=== PATIENT | female | born 1980 | race Caucasian/White ===

== ENCOUNTER 2023-10-20 19:50 | Emergency (ER) | payer OTHER, SELFPAY ==
--- OUTSIDE RECORDS SUMMARY | 2023-10-20 19:55 | XMS REPORT | Continuity of Care Document ---
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 (Robaxin) 750 Mg TABLET 10-09 01:17: 00 No 750mg Every 4 Hours for Moderate Pain(4-6) [facility] Ibuprofen (Motrin) 600 Mg TAB 10-09 01:17: 00 No 600mg Qid Prn for Moderate Pain(4-6) [facility] Methocarbam ol (Robaxin) 750 Mg TABLET 10-09 01:17: 00 No 750mg Every 4 Hours for Moderate Pain(4-6) [facility] Ibuprofen (Motrin) 600 Mg TAB 10-09 01:17: 00 06-30 00:00 :00 No 600mg Qid Prn for Moderate Pain(4-6) [facility] Methocarbam ol (Robaxin) 750 Mg TABLET 10-09 01:17: 06-30 00:00 :00 No 750mg Every 4 Hours for Moderate Pain(4-6) [facility] Ibuprofen (Motrin) 600 Mg TAB 10-09 01:17: 06-30 00:00 :00 No 600mg Qid Prn for Moderate Pain(4-6) [facility] Methocarbam ol (Robaxin) 750 Mg TABLET 10-09:17: 06-30 00:00 :00 No 750mg Every 4 Hours for Moderate Pain(4-6) [facility] Ibuprofen (Motrin) 600 Mg TAB 10-09 01:17: 06-30 00:00 :00 No 600mg Qid Prn for Moderate Pain(4-6) [facility] Methocarbam ol (Robaxin) 750 Mg TABLET 10-09 01:17: 06-30 00:00 :00 No 750mg Every 4 Hours for Moderate Pain(4-6) [facility] Gabapentin (Neurontin) 100 Mg CAP 09-09 01:33: 00 02-22 00:00 :00 No 100mg Three Times A Day [facility] Gabapentin (Neurontin) 100 Mg CAP 09-09 01:33: 00 02-22 00:00 :00 No 100mg Three Times A Day [facility] Gabapentin (Neurontin) 100 Mg CAP 09-09 01:33: 00 02-22 00:00 :00 No 100mg Three Times A Day [facility] Gabapentin (Neurontin) 100 Mg CAP 09-09 01:33: 00 02-22 00:00 :00 No 100mg Three Times A Day [facility] Gabapentin (Neurontin) 100 Mg CAP 09-09 01:33: 00 02-22 00:00 :00 No 100mg Three Times A Day [facility] Gabapentin (Neurontin) 100 Mg CAP 09-09 01:33: 00 02-22 00:00 :00 No 100mg Three Times A Day [facility] Ondansetron Hcl (Zofran Odt) 4 Mg TAB.SHUDIS 2014- 2-18 13:44: 00 02-22 00:00 :00 No 4mg Every 8 Hours [facility] Ondansetron Hcl (Zofran Odt) 4 Mg TAB.RAPDIS 2014-06 13:44: 00 02-22 00:00 :00 No 4mg Every 8 Hours [facility] Ondansetron Hcl (Zofran Odt) 4 Mg TAB.RAPDIS 2014-06 13:44: 00 02-22 00:00 :00 No 4mg Every 8 Hours [facility] Ondansetron Hcl (Zofran Odt) 4 Mg TAB.RAPDIS 2014-06 13:44: 00 02-22 00:00 :00 No 4mg Every 8 Hours [facility] Ondansetron Hcl (Zofran Odt) 4 Mg TAB.SHUDIS 2014-06 13:44: 00 02-22 00:00 :00 No 4mg Every 8 Hours [facility] Ondansetron Hcl (Zofran Odt) 4 Mg TAB.ANTONIO 2014-06 13:44: 00 02-22 00:00 :00 No 4mg Every 8 Hours [facility] Cephalexin (Keflex) 500 Mg CAP 01-22 17:39: 00 02-22 00:00 :00 No 1 Every 6 Hours [facility] Phenazopyri dine Hcl (Pyridium) 100 Mg TAB 01-22 17:39: 00 02-22 00:00 :00 No 100mg Three Times A Day [facility] Polyethylen e Glycol 3350 (Miralax) 17 Gm POWD.PACK 01-22 17:39: 00 02-22 00:00 :00 No 1 Twice A Day [facility] Cephalexin (Keflex) 500 Mg CAP 01-22 17:39: 00 02-22 00:00 :00 No 1 Every 6 Hours [facility] Phenazopyri dine Hcl (Pyridium) 100 Mg TAB 01-22 17:39: 00 02-22 00:00 :00 No 100mg Three Times A Day [facility] Polyethylen e Glycol 3350 (Miralax) 17 Gm POWD.PACK 01-22 17:39: 00 02-22 00:00 :00 No 1 Twice A Day [facility] Cephalexin (Keflex) 500 Mg CAP 01-22 17:39: 00 02-22 00:00 :00 No 1 Every 6 Hours [facility] Phenazopyri dine Hcl (Pyridium) 100 Mg TAB 01-22 17:39: 00 02-22 00:00 :00 No 100mg Three Times A Day [facility] Polyethylen e Glycol 3350 (Miralax) 17 Gm POWD.PACK 01-22 17:39: 00 02-22 00:00 :00 No 1 Twice A Day [facility] Cephalexin (Keflex) 500 Mg CAP 01-22 17:39: 00 02-22 00:00 :00 No 1 Every 6 Hours [facility] Phenazopyri dine Hcl (Pyridium) 100 Mg TAB 01-22 17:39: 00 02-22 00:00 :00 No 100mg Three Times A Day [facility] Polyethylen e Glycol 3350 (Miralax) 17 Gm POWD.PACK 01-22 17:39: 00 02-22 00:00 :00 No 1 Twice A Day [facility] Cephalexin (Keflex) 500 Mg CAP 01-22 17:39: 00 02-22 00:00 :00 No 1 Every 6 Hours [facility] Phenazopyri dine Hcl (Pyridium) 100 Mg TAB 01-22 17:39: 00 02-22 00:00 :00 No 100mg Three Times A Day [facility] Polyethylen e Glycol 3350 (Miralax) 17 Gm POWD.PACK 01-22 17:39: 00 02-22 00:00 :00 No 1 Twice A Day [facility] Cephalexin (Keflex) 500 Mg CAP 01-22 17:39: 00 02-22 00:00 :00 No 1 Every 6 Hours [facility] Phenazopyri dine Hcl (Pyridium) 100 Mg TAB 01-22 17:39: 00 02-22 00:00 :00 No 100mg Three Times A Day [facility] Polyethylen e Glycol 3350 (Miralax) 17 Gm POWD.PACK 01-22 17:39: 00 02-22 00:00 :00 No 1 Twice A Day [facility] Benzocaine/ Antipyrine (Auralgan Otic Soln) 150 Drop/10 Ml SOLN 01-12 15:59: 00 02-22 00:00 :00 No 2[drp] Three Times A Day as needed for Pain [facility] Benzocaine/ Antipyrine (Auralgan Otic Soln) 150 Drop/10 Ml SOLN 01-12 15:59: 00 02-22 00:00 :00 No 2[drp] Three Times A Day as needed for Pain [facility] Benzocaine/ Antipyrine (Auralgan Otic Soln) 150 Drop/10 Ml SOLN 01-12 15:59: 00 02-22 00:00 :00 No 2[drp] Three Times A Day as needed for Pain [facility] Benzocaine/ Antipyrine (Auralgan Otic Soln) 150 Drop/10 Ml SOLN 01-12 15:59: 00 02-22 00:00 :00 No 2[drp] Three Times A Day as needed for Pain [facility] Benzocaine/ Antipyrine (Auralgan Otic Soln) 150 Drop/10 Ml SOLN 01-12 15:59: 00 02-22 00:00 :00 No 2[drp] Three Times A Day as needed for Pain [facility] Benzocaine/ Antipyrine (Auralgan Otic Soln) 150 Drop/10 Ml SOLN 01-12 15:59: 00 02-22 00:00 :00 No 2[drp] Three Times A Day as needed for Pain [facility] D-Methorpha n Hb/P-Epd Hcl/Bpm Syrup (Bromfed Dm Cough Syrup) 118 Ml SYRUP 2013-06 18:59: 00 02-22 00:00 :00 No 10mL Bedtime [facility] D-[place]eth[place] n Hb/P-Epd Hcl/Bpm Syrup (Bromfed Dm Cough Syrup) 118 Ml SYRUP 2013-06 18:59: 00 02-22 00:00 :00 No 10mL Bedtime [facility] D-Methorpha n Hb/P-Epd Hcl/Bpm Syrup (Bromfed Dm Cough Syrup) 118 Ml SYRUP 2013-06 18:59: 00 02-22 00:00 :00 No 10mL Bedtime [facility] D-Methor[place] n Hb/P-Epd Hcl/Bpm Syrup (Bromfed Dm Cough Syrup) 118 Ml SYRUP 2013-06 18:59: 00 02-22 00:00 :00 No 10mL Bedtime [facility] D-Methor[place] n Hb/P-Epd Hcl/Bpm Syrup (Bromfed Dm Cough Syrup) 118 Ml SYRUP 2013-06 18:59: 00 02-22 00:00 :00 No 10mL Bedtime [facility] D-Methor[place] n Hb/P-Epd Hcl/Bpm Syrup (Bromfed Dm Cough Syrup) 118 Ml SYRUP 2013-06 18:59: 00 02-22 00:00 :00 No 10mL Bedtime [facility] Albuterol Sulfate (Proventil Neb Soln) 2.5 Mg/3 Ml 2013-06 18:49: 00 02-22 00:00 :00 No 1 Qid Prn [facility] Ipratropium [place] (Atrovent Neb) 0.2 Mg/Ml PENDING SALE TO [facility] 2013-06 18:49: 00 02-22 00:00 :00 No .5mg Daily [facility] Albuterol Sulfate (Proventil Neb Soln) 2.5 Mg/3 Ml 2013-06 18:49: 00 02-22 00:00 :00 No 1 Qid Prn [facility] Ipratropium [place] (Atrovent Neb) 0.2 Mg/Ml SOLN 2013-06 18:49: 00 02-22 00:00 :00 No .5mg Daily [facility] Albuterol Sulfate (Proventil Neb Soln) 2.5 Mg/3 Ml 2013-06 18:49: 00 02-22 00:00 :00 No 1 Qid Prn [facility] Ipratropium [place] (Atrovent Neb) 0.2 [facility]l [facility] 2013-06 18:49: 00 02-22 00:00 :00 No .5mg Daily [facility] Albuterol Sulfate (Proventil Neb Soln) 2.5 Mg/3 Ml 2013-06 18:49: 00 02-22 00:00 :00 No 1 Qid Prn [facility] Ipratropium [place] (Atrovent Neb) 0.2 Mg/Ml [facility] 2013-06 18:49: 00 02-22 00:00 :00 No .5mg Daily [facility] Albuterol Sulfate (Proventil Neb Soln) 2.5 Mg/3 Ml 2013-06 18:49: 00 02-22 00:00 :00 No 1 Qid Prn [facility] Ipratropium [place] (Atrovent Neb) 0.2 Mg/Ml PENDING SALE TO [facility] 2013-06 18:49: 00 02-22 00:00 :00 No .5mg Daily [facility] Albuterol Sulfate (Proventil Neb Soln) 2.5 Mg/3 Ml 2013-06 18:49: 00 02-22 00:00 :00 No 1 Qid Prn [facility] Ipratropium [place] (Atrovent Neb) 0.2 Mg/Ml [facility] 2013-06 18:49: 00 02-22 00:00 :00 No .5mg Daily [facility] Albuterol Sulfate (Ventolin Hfa Inh 18 Gm) 18 Gm HFA.AER.AD 2013-06 17:21: 00 06-04 00:00 :00 No 1 Q 6 Hours Prn Cough [facility] Azithromyci n (Zithromax Z-Antonio) 6 Tab/Pkg TAB 2013-06 17:21: 00 06-04 00:00 :00 No 1 As Directed [facility] Benzonatate (Tessalon) 100 Mg CAP 2013-06 17:21: 00 06-04 00:00 :00 No 1 Tid Prn Cough [facility] Cefuroxime Axetil (Ceftin) 500 Mg TAB 2013-06 17:21: 00 06-04 00:00 :00 No 500mg Every 12 Hours [facility] Oseltamivir Phosphate (Tamiflu) 75 Mg CAP 2013-06 17:21: 00 06-04 00:00 :00 No 1 Twice A Day [facility] Albuterol Sulfate (Ventolin Hfa Inh 18 Gm) 18 Gm HFA.AER.AD 2013-06 17:21: 00 06-04 00:00 :00 No 1 Q 6 Hours Prn Cough [facility] Azithromyci n (Zithromax Z-Antonio) 6 Tab/Pkg TAB 2013-06 17:21: 00 06-04 00:00 :00 No 1 As Directed [facility] Benzonatate (Tessalon) 100 Mg CAP 2013-06 17:21: 00 06-04 00:00 :00 No 1 Tid Prn Cough [facility] Cefuroxime Axetil (Ceftin) 500 Mg TAB 2013-06 17:21: 00 06-04 00:00 :00 No 500mg Every 12 Hours [facility] Oseltamivir Phosphate (Tamiflu) 75 Mg CAP 2013-06 17:21: 00 06-04 00:00 :00 No 1 Twice A Day [facility] Albuterol Sulfate (Ventolin Hfa Inh 18 Gm) 18 Gm HFA.AER.AD 2013-06 17:21: 00 06-04 00:00 :00 No 1 Q 6 Hours Prn Cough [facility] Azithromyci n (Zithromax Z-Antonio) 6 Tab/Pkg TAB 2013-06 17:21: 00 06-04 00:00 :00 No 1 As Directed [facility] Benzonatate (Tessalon) 100 Mg CAP 2013-06 17:21: 00 06-04 00:00 :00 No 1 Tid Prn Cough [facility] Cefuroxime Axetil (Ceftin) 500 Mg TAB 2013-06 17:21: 00 06-04 00:00 :00 No 500mg Every 12 Hours [facility] Oseltamivir Phosphate (Tamiflu) 75 Mg CAP 2013-06 17:21: 00 06-04 00:00 :00 No 1 Twice A Day [facility] Albuterol Sulfate (Ventolin Hfa Inh 18 Gm) 18 Gm HFA.AER.AD 2013-06 17:21: 00 06-04 00:00 :00 No 1 Q 6 Hours Prn Cough [facility] Azithromyci n (Zithromax Z-Antonio) 6 Tab/Pkg TAB 2013-06 17:21: 00 06-04 00:00 :00 No 1 As Directed [facility] Benzonatate (Tessalon) 100 Mg CAP 2013-06 17:21: 00 06-04 00:00 :00 No 1 Tid Prn Cough [facility] Cefuroxime Axetil (Ceftin) 500 Mg TAB 2013-06 17:21: 00 06-04 00:00 :00 No 500mg Every 12 Hours [facility] Oseltamivir Phosphate (Tamiflu) 75 Mg CAP 2013-06 17:21: 00 06-04 00:00 :00 No 1 Twice A Day [facility] Albuterol Sulfate (Ventolin Hfa Inh 18 Gm) 18 Gm HFA.AER.AD 2013-06 17:21: 00 06-04 00:00 :00 No 1 Q 6 Hours Prn Cough [facility] Azithromyci n (Zithromax Z-Antonio) 6 Tab/Pkg TAB 2013-06 17:21: 00 06-04 00:00 :00 No 1 As Directed [facility] Benzonatate (Tessalon) 100 Mg CAP 2013-06 17:21: 00 06-04 00:00 :00 No 1 Tid Prn Cough [facility] Cefuroxime Axetil (Ceftin) 500 Mg TAB 2013-06 17:21: 00 06-04 00:00 :00 No 500mg Every 12 Hours [facility] Oseltamivir Phosphate (Tamiflu) 75 Mg CAP 2013-06 17:21: 00 06-04 00:00 :00 No 1 Twice A Day [facility] Albuterol Sulfate (Ventolin Hfa Inh 18 Gm) 18 Gm HFA.AER.AD 2013-06 17:21: 00 06-04 00:00 :00 No 1 Q 6 Hours Prn Cough [facility] Azithromyci n (Zithromax Z-Antonio) 6 Tab/Pkg TAB 2013-06 17:21: 00 06-04 00:00 :00 No 1 As Directed [facility] Benzonatate (Tessalon) 100 Mg CAP 2013-06 17:21: 00 06-04 00:00 :00 No 1 Tid Prn Cough [facility] Cefuroxime Axetil (Ceftin) 500 Mg TAB 2013-06 17:21: 00 06-04 00:00 :00 No 500mg Every 12 Hours [facility] Oseltamivir Phosphate (Tamiflu) 75 Mg CAP 2013-06 17:21: 00 06-04 00:00 :00 No 1 Twice A Day [facility] Duloxetine Hcl (Cymbalta) 20 Mg CPDR 2013-06 17:18: 00 05-12 00:00 :00 No 0 Daily [facility] Duloxetine Hcl (Cymbalta) 20 Mg CPDR 2013-06 17:18: 00 05-12 00:00 :00 No 0 Daily [facility] Duloxetine Hcl (Cymbalta) 20 Mg CPDR 2013-06 17:18: 00 05-12 00:00 :00 No 0 Daily [facility] Duloxetine Hcl (Cymbalta) 20 Mg CPDR 2013-06 17:18: 00 05-12 00:00 :00 No 0 Daily [facility] Duloxetine Hcl (Cymbalta) 20 Mg CPDR 2013-06 17:18: 00 05-12 00:00 :00 No 0 Daily [facility] Duloxetine Hcl (Cymbalta) 20 Mg CPDR 2013-06 17:18: 00 05-12 00:00 :00 No 0 Daily [facility] Doxycycline Hyclate (Vibramycin ) 100 Mg CAP 2012-06 14:07: 00 05-12 00:00 :00 No 100mg Every 12 Hours [facility] Doxycycline Hyclate (Vibramycin ) 100 Mg CAP 2012-06 14:07: 00 05-12 00:00 :00 No 100mg Every 12 Hours [facility] Doxycycline Hyclate (Vibramycin ) 100 Mg CAP 2012-06 14:07: 00 05-12 00:00 :00 No 100mg Every 12 Hours [facility] Doxycycline Hyclate (Vibramycin ) 100 Mg CAP 2012-06 14:07: 00 05-12 00:00 :00 No 100mg Every 12 Hours [facility] Doxycycline Hyclate (Vibramycin ) 100 Mg CAP 2012-06 14:07: 00 05-12 00:00 :00 No 100mg Every 12 Hours [facility] Doxycycline Hyclate (Vibramycin ) 100 Mg CAP 2012-06 14:07: 00 05-12 00:00 :00 No 100mg Every 12 Hours [facility] Fluconazole (Diflucan) 150 Mg TAB 2012-06 18:21: 00 06-11 00:00 :00 No 150mg Once [facility] Fluconazole (Diflucan) 150 Mg TAB 2012-06 18:21: 00 06-11 00:00 :00 No 150mg Once [facility] Fluconazole (Diflucan) 150 Mg TAB 2012-06 18:21: 00 06-11 00:00 :00 No 150mg Once [facility] Fluconazole (Diflucan) 150 Mg TAB 2012-06 18:21: 00 06-11 00:00 :00 No 150mg Once [facility] Fluconazole (Diflucan) 150 Mg TAB 2012-06 18:21: 00 06-11 00:00 :00 No 150mg Once [facility] Fluconazole (Diflucan) 150 Mg TAB 2012-06 18:21: 00 06-11 00:00 :00 No 150mg Once [facility] Ondansetron Hcl (Zofran Odt) 4 Mg TAB.ANTONIO 2012-06 13:39: 00 06-11 00:00 :00 No 4mg Every 8 Hours [facility] Ondansetron Hcl (Zofran Odt) 4 Mg TAB.RAPDIS 2012-06 13:39: 00 06-11 00:00 :00 No 4mg Every 8 Hours [facility] Ondansetron Hcl (Zofran Odt) 4 Mg TAB.SHUDIS 2012-06 13:39: 00 06-11 00:00 :00 No 4mg Every 8 Hours [facility] Ondansetron Hcl (Zofran Odt) 4 Mg TAB.ANTONIO 2012-06 13:39: 00 06-11 00:00 :00 No 4mg Every 8 Hours [facility] Ondansetron Hcl (Zofran Odt) 4 Mg TAB.ANTONIO 2012-06 13:39: 00 06-11 00:00 :00 No 4mg Every 8 Hours [facility] Ondansetron Hcl (Zofran Odt) 4 Mg TAB.ANTONIO 2012-06 13:39: 00 06-11 00:00 :00 No 4mg Every 8 Hours [facility] Crutches 2012-06 09:07: 00 04-15 00:00 :00 No [facility] Ketoprofen (Orudis) 75 Mg CAP 2012-06 09:07: 00 04-15 00:00 :00 No 75mg Q 12 Hours Prn Pain [facility] Right Knee Brace 2012-06 09:07: 00 04-15 00:00 :00 No [facility] Crutches 2012-06 09:07: 00 04-15 00:00 :00 No [facility] Ketoprofen (Orudis) 75 Mg CAP 2012-06 09:07: 00 04-15 00:00 :00 No 75mg Q 12 Hours Prn Pain [facility] Right Knee Brace 2012-06 09:07: 00 04-15 00:00 :00 No [facility] Crutches 2012-06 09:07: 00 04-15 00:00 :00 No [facility] Ketoprofen (Orudis) 75 Mg CAP 2012-06 021 09:07: 00 04-15 00:00 :00 No 75mg Q 12 Hours Prn Pain [facility] Right Knee Brace 2012-0621 09:07: 00 04-15 00:00 :00 No [facility] Crutches 2012-0621 09:07: 00 04-15 00:00 :00 No [facility] Ketoprofen (Orudis) 75 Mg CAP 2012-06 09:07: 00 04-15 00:00 :00 No 75mg Q 12 Hours Prn Pain [facility] Right Knee Brace 2012-06 09:07: 00 04-15 00:00 :00 No [facility] Crutches 2012-06 09:07: 00 04-15 00:00 :00 No [facility] Ketoprofen (Orudis) 75 Mg CAP 2012-06 09:07: 00 04-15 00:00 :00 No 75mg Q 12 Hours Prn Pain [facility] Right Knee Brace 2012-06 09:07: 00 04-15 00:00 :00 No [facility] Crutches 2012-06 09:07: 00 04-15 00:00 :00 No [facility] Ketoprofen (Orudis) 75 Mg CAP 2012-06 09:07: 00 04-15 00:00 :00 No 75mg Q 12 Hours Prn Pain [facility] Right Knee Brace 2012-06 09:07: 00 04-15 00:00 :00 No [facility] Cephalexin (Keflex) 500 Mg CAP 2012-06 008 10:05: 00 04-15 00:00 :00 No 500mg Every 6 Hours [facility] Cephalexin (Keflex) 500 Mg CAP 2012-06 008 10:05: 00 04-15 00:00 :00 No 500mg Every 6 Hours [facility] Cephalexin (Keflex) 500 Mg CAP 2012-06 008 10:05: 00 04-15 00:00 :00 No 500mg Every 6 Hours [facility] Cephalexin (Keflex) 500 Mg CAP 2012-0608 10:05: 00 04-15 00:00 :00 No 500mg Every 6 Hours [facility] Cephalexin (Keflex) 500 Mg CAP 2012-06 10:05: 04-15 00:00 :00 No 500mg Every 6 Hours [facility] Cephalexin (Keflex) 500 Mg CAP 2012-06 10:05: 00 04-15 00:00 :00 No 500mg Every 6 Hours [facility] Naproxen (Naprosyn) 500 Mg TAB 10-07 08:29: 00 03-24 00:00 :00 No 500mg Every 12 Hours [facility] Naproxen (Naprosyn) 500 Mg TAB 10-07 08:29: 00 03-24 00:00 :00 No 500mg Every 12 Hours [facility] Naproxen (Naprosyn) 500 Mg TAB 10-07 08:29: 00 03-24 00:00 :00 No 500mg Every 12 Hours [facility] Naproxen (Naprosyn) 500 Mg TAB 10-07 08:29: 00 03-24 00:00 :00 No 500mg Every 12 Hours [facility] Naproxen (Naprosyn) 500 Mg TAB 10-07 08:29: 00 03-24 00:00 :00 No 500mg Every 12 Hours [facility] Naproxen (Naprosyn) 500 Mg TAB 10-07 08:29: 00 03-24 00:00 :00 No 500mg Every 12 Hours [facility] Acetaminoph en/Hydrocod one Bitart (Vicodin 5-500) 1 Tab TAB 11-11 12:15: 00 03-24 00:00 :00 No 1 Q6h Prn [facility] Acetaminoph en/Hydrocod one Bitart (Vicodin 5-500) 1 Tab TAB 11-11 12:15: 00 03-24 00:00 :00 No 1 Q6h Prn [facility] Acetaminoph en/Hydrocod one Bitart (Vicodin 5-500) 1 Tab TAB 11-11 12:15: 00 03-24 00:00 :00 No 1 Q6h Prn [facility] Acetaminoph en/Hydrocod one Bitart (Vicodin 5-500) 1 Tab TAB 11-11 12:15: 00 03-24 00:00 :00 No 1 Q6h Prn [facility] Acetaminoph en/Hydrocod one Bitart (Vicodin 5-500) 1 Tab TAB 11-11 12:15: 00 03-24 00:00 :00 No 1 Q6h Prn [facility] Health Acetaminoph en/Hydrocod one Bitart (Vicodin 5-500) 1 Tab TAB 11-11 12:15: 00 03-24 00:00 :00 No 1 Q6h Prn [facility] Mupirocin (Bactroban 2% Nasal Oint) 1 Applic/Gm OINT 09-13 12:14: 00 03-24 00:00 :00 No 1 Three Times A Day [facility] Mupirocin (Bactroban 2% Nasal Oint) 1 Applic/Gm OINT 09-13 12:14: 00 03-24 00:00 :00 No 1 Three Times A Day [facility] Mupirocin (Bactroban 2% Nasal Oint) 1 Applic/Gm OINT 09-13 12:14: 00 03-24 00:00 :00 No 1 Three Times A Day [facility] Mupirocin (Bactroban 2% Nasal Oint) 1 Applic/Gm OINT 09-13 12:14: 00 03-24 00:00 :00 No 1 Three Times A Day [facility] Mupirocin (Bactroban 2% Nasal Oint) 1 Applic/Gm OINT 09-13 12:14: 00 03-24 00:00 :00 No 1 Three Times A Day [facility] Mupirocin (Bactroban 2% Nasal Oint) 1 Applic/Gm OINT 09-13 12:14: 00 03-24 00:00 :00 No 1 Three Times A Day [facility] Levofloxaci n (Levaquin) 750 Mg TAB 09-13 12:13: 00 03-24 00:00 :00 No 1 Daily [facility] Levofloxaci n (Levaquin) 750 Mg TAB 09-13 12:13: 00 03-24 00:00 :00 No 1 Daily [facility] Levofloxaci n (Levaquin) 750 Mg TAB 09-13 12:13: 00 03-24 00:00 :00 No 1 Daily [facility] Levofloxaci n (Levaquin) 750 Mg TAB 09-13 12:13: 00 03-24 00:00 :00 No 1 Daily [facility] Levofloxaci n (Levaquin) 750 Mg TAB 09-13 12:13: 00 03-24 00:00 :00 No 1 Daily [facility] Levofloxaci n (Levaquin) 750 Mg TAB 09-13 12:13: 00 03-24 00:00 :00 No 1 Daily [facility] Clindamycin Hcl (Cleocin) 150 Mg CAP 09-07 13:10: 00 03-24 00:00 :00 No 2 Four Times Daily [facility] Trimethopri m/Sulfameth oxazole (Bactrim Ds, Septra Ds, Sulfatrim Ds) 1 Tab TAB 09-07 13:10: 00 03-24 00:00 :00 No 1 Twice A Day [facility] Health Clindamycin Hcl (Cleocin) 150 Mg CAP 09-07 13:10: 03-24 00:00 :00 No 2 Four Times [facility] Trimethopri m/Sulfameth oxazole (Bactrim Ds, Septra Ds, Sulfatrim Ds) 1 Tab TAB 09-07 13:10: 00 03-24 00:00 :00 No 1 Twice A Day [facility] Clindamycin Hcl (Cleocin) 150 Mg CAP 09-07 13:10: 00 03-24 00:00 :00 No 2 Four Times Daily [facility] Trimethopri m/Sulfameth oxazole (Bactrim Ds, Septra Ds, Sulfatrim Ds) 1 Tab TAB 09-07 13:10: 03-24 00:00 :00 No 1 Twice A Day [facility] Clindamycin Hcl (Cleocin) 150 Mg CAP 09-07 13:10: 03-24 00:00 :00 No 2 Four Times Daily [facility] Trimethopri m/Sulfameth oxazole (Bactrim Ds, Septra Ds, Sulfatrim Ds) 1 Tab TAB 09-07 13:10: 03-24 00:00 :00 No 1 Twice A Day [facility] Clindamycin Hcl (Cleocin) 150 Mg CAP 09-07 13:10: 03-24 00:00 :00 No 2 Four Times Daily [facility] Trimethopri m/Sulfameth oxazole (Bactrim Ds, Septra Ds, Sulfatrim Ds) 1 Tab TAB 09-07 13:10: 03-24 00:00 :00 No 1 Twice A Day [facility] Clindamycin Hcl (Cleocin) 150 Mg CAP 09-07 13:10: 03-24 00:00 :00 No 2 Four Times Daily [facility] Trimethopri m/Sulfameth oxazole (Bactrim Ds, Septra Ds, Sulfatrim Ds) 1 Tab TAB 09-07 13:10: 03-24 00:00 :00 No 1 Twice A Day [facility] Clonazepam No 1mg Twice A Day [facility] Duloxetine Hcl No 120mg Daily [facility] Enoxaparin Sodium No 40mg Daily [facility] Famotidine No 20mg Twice A Day [facility] Lorazepam No 1mg Every 4 Hours [facility] Ondansetron Hcl No 4mg Every 8 Hours as needed for Nausea / Vomiting [facility] Risperidone No 2mg Bedtime [facility] Clonazepam (Klonopin) 1 Mg TAB No 1mg Twice A Day [facility] Duloxetine Hcl (Cymbalta) 60 Mg CPDR No 120mg Daily [facility] Enoxaparin Sodium (Lovenox Inj) 40 Mg/0.4 Ml SYR No 40mg Daily [facility] Famotidine (Pepcid) 20 Mg TAB No 20mg Twice A Day [facility] Lorazepam (Ativan Inj) 2 Mg/Ml DISP.SYRIN No 1mg Every 4 Hours [facility] Ondansetron Hcl (Zofran) 4 Mg TAB No 4mg Every 8 Hours as needed for Nausea / Vomiting [facility] Risperidone (Risperdal) 2 Mg TAB No 2mg Bedtime [facility] Clonazepam (Klonopin) 1 Mg TAB No 1mg Twice A Day [facility] Duloxetine Hcl (Cymbalta) 60 Mg CPDR No 120mg Daily [facility] Enoxaparin Sodium (Lovenox Inj) 40 Mg/0.4 Ml SYR No 40mg Daily [facility] Famotidine (Pepcid) 20 Mg TAB No 20mg Twice A Day [facility] Lorazepam (Ativan Inj) 2 Mg/Ml DISP.SYRIN No 1mg Every 4 Hours [facility] Ondansetron Hcl (Zofran) 4 Mg TAB No 4mg Every 8 Hours as needed for Nausea / Vomiting [facility] Risperidone (Risperdal) 2 Mg TAB No 2mg Bedtime [facility] Clonazepam (Klonopin) 1 Mg TAB No 1mg Twice A Day [facility] Duloxetine Hcl (Cymbalta) 60 Mg CPDR No 120mg Daily [facility] Enoxaparin Sodium (Lovenox Inj) 40 Mg/0.4 Ml SYR No 40mg Daily [facility] Famotidine (Pepcid) 20 Mg TAB No 20mg Twice A Day [facility] Lorazepam (Ativan Inj) 2 Mg/Ml DISP.SYRIN No 1mg Every 4 Hours [facility] Ondansetron Hcl (Zofran) 4 Mg TAB No 4mg Every 8 Hours as needed for Nausea / Vomiting [facility] Risperidone (Risperdal) 2 Mg TAB No 2mg Bedtime [facility] Bupropion Hcl (Wellbutrin Xl) 300 Mg TABCR No 300mg Daily [facility] Buspirone Hcl (Buspar) 7.5 Mg TAB No 7.5mg Three Times A Day [facility] Paroxetine Hcl (Paxil) 20 Mg TAB No 20mg Daily [facility] Trazodone Hcl (Desyrel) 50 Mg TAB No 50mg Bedtime [facility] Bupropion Hcl (Wellbutrin Xl) 300 Mg TABCR No 300mg Daily [facility] Buspirone Hcl (Buspar) 7.5 Mg TAB No 7.5mg Three Times A Day [facility] Paroxetine Hcl (Paxil) 20 Mg TAB No 20[facility] Trazodone Hcl (Desyrel) 50 Mg TAB No 50mg Bedtime [facility] Clonazepam (Klonopin) 1 Mg TAB 07-19 00:00 :00 No 1mg Twice A Day [facility] Duloxetine Hcl (Cymbalta) 60 Mg CPDR 07-19 00:00 :00 No 120mg Daily [facility] Enoxaparin Sodium (Lovenox Inj) 40 Mg/0.4 Ml SYR 07-19 00:00 :00 No 40mg Daily [facility] Famotidine (Pepcid) 20 Mg TAB 07-19 00:00 :00 No 20mg Twice A Day [facility] Lorazepam (Ativan Inj) 2 Mg/Ml DISP.SYRIN 07-19 00:00 :00 No 1mg Every 4 Hours [facility] Ondansetron Hcl (Zofran) 4 Mg TAB 07-19 00:00 :00 No 4mg Every 8 Hours as needed for Nausea / Vomiting [facility] Risperidone (Risperdal) 2 Mg TAB 07-19 00:00 :00 No 2mg Bedtime [facility] Clonazepam (Klonopin) 1 Mg TAB 07-19 00:00 :00 No 1mg Twice A Day [facility] Duloxetine Hcl (Cymbalta) 60 Mg CPDR 07-19 00:00 :00 No 120mg Daily [facility] Enoxaparin Sodium (Lovenox Inj) 40 Mg/0.4 Ml SYR 07-19 00:00 :00 No 40mg Daily [facility] Famotidine (Pepcid) 20 Mg TAB 07-19 00:00 :00 No 20mg Twice A Day [facility] Lorazepam (Ativan Inj) 2 Mg/Ml DISP.SYRIN 07-19 00:00 :00 No 1mg Every 4 Hours [facility] Ondansetron Hcl (Zofran) 4 Mg TAB 07-19 00:00 :00 No 4mg Every 8 Hours as needed for Nausea / Vomiting [facility] Risperidone (Risperdal) 2 Mg TAB 07-19 00:00 :00 No 2mg Bedtime [facility] Albuterol (Proair Hfa Inh) 200 Puff/8.5 Gm AERO 02-27 00:00 :00 No 1 [facility] Health Cyclobenzap rine Hcl (Flexeril) 10 Mg TAB 02-27 00:00 :00 No 10mg Twice A Day [facility] Diphenhydra mine Hcl (Benadryl) 50 Mg CAP 02-27 00:00 :00 No 50mg Bedtime as needed for Sleep [facility] Duloxetine Hcl (Cymbalta) 60 Mg CPDR 02-27 00:00 :00 No 60mg Daily [facility] Ibuprofen (Motrin) 800 Mg TAB 02-27 00:00 :00 No 800mg Every 8 Hours as needed for Pain [facility] Albuterol (Proair Hfa Inh) 200 Puff/8.5 Gm AERO 02-27 00:00 :00 No 1 [facility] Cyclobenzap rine Hcl (Flexeril) 10 Mg TAB 02-27 00:00 :00 No 10mg Twice A Day [facility] Diphenhydra mine Hcl (Benadryl) 50 Mg CAP 02-27 00:00 :00 No 50mg Bedtime as needed for Sleep [facility] Duloxetine Hcl (Cymbalta) 60 Mg CPDR 02-27 00:00 :00 No 60mg Daily [facility] Health Ibuprofen (Motrin) 800 Mg TAB 02-27 00:00 :00 No 800mg Every 8 Hours as needed for Pain [facility] Albuterol (Proair Hfa Inh) 200 Puff/8.5 Gm AERO 02-27 00:00 :00 No 1 [facility] Cyclobenzap rine Hcl (Flexeril) 10 Mg TAB 02-27 00:00 :00 No 10mg Twice A Day [facility] Diphenhydra mine Hcl (Benadryl) 50 Mg CAP 02-27 00:00 :00 No 50mg Bedtime as needed for Sleep [facility] Duloxetine Hcl (Cymbalta) 60 Mg CPDR 02-27 00:00 :00 No 60mg Daily [facility] Ibuprofen (Motrin) 800 Mg TAB 02-27 00:00 :00 No 800mg Every 8 Hours as needed for Pain [facility] Albuterol (Proair Hfa Inh) 200 Puff/8.5 Gm AERO 02-27 00:00 :00 No 1 [facility] Cyclobenzap rine Hcl (Flexeril) 10 Mg TAB 02-27 00:00 :00 No 10mg Twice A Day [facility] Diphenhydra mine Hcl (Benadryl) 50 Mg CAP 02-27 00:00 :00 No 50mg Bedtime as needed for Sleep [facility] Duloxetine Hcl (Cymbalta) 60 Mg CPDR 02-27 00:00 :00 No 60mg Daily [facility] Ibuprofen (Motrin) 800 Mg TAB 02-27 00:00 :00 No 800mg Every 8 Hours as needed for Pain [facility] Albuterol (Proair Hfa Inh) 200 Puff/8.5 Gm AERO 02-27 00:00 :00 No 1 [facility] Cyclobenzap rine Hcl (Flexeril) 10 Mg TAB 02-27 00:00 :00 No 10mg Twice A Day [facility] Diphenhydra mine Hcl (Benadryl) 50 Mg CAP 02-27 00:00 :00 No 50mg Bedtime as needed for Sleep [facility] Duloxetine Hcl (Cymbalta) 60 Mg CPDR 02-27 00:00 :00 No 60mg Daily [facility] Ibuprofen (Motrin) 800 Mg TAB 02-27 00:00 :00 No 800mg Every 8 Hours as needed for Pain [facility] Albuterol (Proair Hfa Inh) 200 Puff/8.5 Gm AERO 02-27 00:00 :00 No 1 [facility] Cyclobenzap rine Hcl (Flexeril) 10 Mg TAB 02-27 00:00 :00 No 10mg Twice A Day [facility] Diphenhydra mine Hcl (Benadryl) 50 Mg CAP 02-27 00:00 :00 No 50mg Bedtime as needed for Sleep [facility] Duloxetine Hcl (Cymbalta) 60 Mg CPDR 02-27 00:00 :00 No 60mg Daily [facility] Ibuprofen (Motrin) 800 Mg TAB 02-27 00:00 :00 No 800mg Every 8 Hours as needed for Pain [facility] Topiramate (Topamax) 100 Mg TAB 02-22 00:00 :00 No 100mg Daily [facility] Topiramate (Topamax) 100 Mg TAB 02-22 00:00 :00 No 100mg Daily [facility] Topiramate (Topamax) 100 Mg TAB 02-22 00:00 :00 No 100mg Daily [facility] Topiramate (Topamax) 100 Mg TAB 02-22 00:00 :00 No 100mg Daily [facility] Topiramate (Topamax) 100 Mg TAB 02-22 00:00 :00 No 100mg Daily [facility] Topiramate (Topamax) 100 Mg TAB 02-22 00:00 :00 No 100mg Daily [facility] Cymbalta 06-04 00:00 :00 No [facility] Lorazepam (Ativan) 1 Mg TAB 06-04 00:00 :00 No 1mg As Needed [facility] Topiramate (Topamax) 100 Mg TAB 06-04 00:00 :00 No 100mg [facility] Cymbalta 06-04 00:00 :00 No [facility] Lorazepam (Ativan) 1 Mg TAB 06-04 00:00 :00 No 1mg As Needed [facility] Topiramate (Topamax) 100 Mg TAB 06-04 00:00 :00 No 100mg [facility] Cymbalta 06-04 00:00 :00 No [facility] Lorazepam (Ativan) 1 Mg TAB 06-04 00:00 :00 No 1mg As Needed [facility] Topiramate (Topamax) 100 Mg TAB 06-04 00:00 :00 No [facility] 06[facility] 00:00 :00 No [facility] Lorazepam (Ativan) 1 Mg TAB 06-04 00:00 :00 No 1mg As [facility] Topiramate (Topamax) 100 Mg TAB 06-04 00:00 :00 No 100mg [facility] 06-04 00:00 :00 No [facility] Lorazepam (Ativan) 1 Mg TAB 06-04 00:00 :00 No 1mg As Needed [facility] Topiramate (Topamax) 100 Mg TAB 06-04 00:00 :00 No [facility]mg [facility] 06-04 00:00 :00 No [facility] Lorazepam (Ativan) 1 Mg TAB 06-04 00:00 :00 No 1mg As Needed [facility] Topiramate (Topamax) 100 Mg TAB 06-04 00:00 :00 No 100mg [facility] Motrin 04-15 00:00 :00 No [facility] Motrin 04-15 00:00 :00 No [facility] Motrin 04-15 00:00 :00 No [facility] Motrin 04-15 00:00 :00 No [facility] Motrin 04-15 00:00 :00 No [facility] Motrin 04-15 00:00 :00 No [facility] Paxil 03-24 00:00 :00 No [facility] Risperdine 03-24 00:00 :00 No [facility] Paxil 03-24 00:00 :00 No [facility] Risperdine 03-24 00:00 :00 No [facility] Paxil 03-24 00:00 :00 No [facility] Risperdine 03-24 00:00 :00 No [facility] Paxil 03-24 00:00 :00 No [facility] Risperdine 03-24 00:00 :00 No [facility] Paxil 03-24 00:00 :00 No [facility] Risperdine 03-24 00:00 :00 No [facility] Paxil 03-24 00:00 :00 No [facility] Risperdine 03-24 00:00 :00 No [facility] Duloxetine Hcl (Cymbalta) 60 Mg CPDR 10-07 00:00 :00 No 120mg [facility] Information (No Home Meds) [facility] 10-07 00:00 :00 No 0 Xx For Order Sets [facility] Duloxetine Hcl (Cymbalta) 60 Mg CPDR 10-07 00:00 :00 No 120mg [facility] Information (No Home Meds) [facility] 10-07 00:00 :00 No 0 Xx For Order Sets [facility] Duloxetine Hcl (Cymbalta) 60 Mg CPDR 10-07 00:00 :00 No 120mg [facility] Information (No Home Meds) [facility] 10-07 00:00 :00 No 0 Xx For Order Sets [facility] Duloxetine Hcl (Cymbalta) 60 Mg CPDR 10-07 00:00 :00 No 120mg [facility] us Information (No Home Meds) [facility] 10-07 00:00 :00 No 0 Xx For Order Sets [facility] Duloxetine Hcl (Cymbalta) 60 Mg CPDR 10-07 00:00 :00 No 120mg [facility] M[facility] us Information (No Home Meds) [facility] 10-07 00:00 :00 No 0 Xx For Order Sets [facility] Duloxetine Hcl (Cymbalta) 60 Mg CPDR 10-07 00:00 :00 No 120mg [facility] Miscellaneo us Information (No Home Meds) [facility] 10-07 00:00 :00 No 0 Xx For Order Sets [facility] Vital Signs Vital Name Observation Time Observation Value Comments Shine denisaflora Weight Dosing 2021-07-06 10:55:33 100.50 kg Weight Dosing 2021-07-06 09:13:12 100.50 kg Height/Length Measured 2021-07-06 09:22:45 167.64 cm BP Diastolic 2021-08-03 11:37:00 72 mm[Hg] [facility] BP Systolic 2021-08-03 11:37:00 140 mm[Hg] [facility] Heart Rate 2021-08-03 11:37:00 98 /min [facility] Respiratory rate 2021-08-03 11:37:00 18 /min [facility] Body Temperature 2021-08-03 11:37:00 97.1 [degF] [facility] BP Diastolic 2021-08-03 10:20:00 79 mm[Hg] [facility] BP Systolic 2021-08-03 10:20:00 121 mm[Hg] [facility] Heart [facility] 2021-08-03 10:20:00 99 /min [facility] Respiratory rate 2021-08-03 10:20:00 18 /min [facility] Body Temperature 2021-08-03 10:20:00 97.1 [degF] [facility] BP Diastolic 2021-07-19 19:27:00 70 mm[Hg] [facility] BP Systolic 2021-07-19 19:27:00 141 mm[Hg] [facility] Heart Rate 2021-07-19 19:27:00 98 /min [facility] Respiratory rate 2021-07-19 19:27:00 18 /min [facility] Body Temperature 2021-07-19 19:27:00 98.2 [degF] [facility] BP Diastolic 2021-07-19 16:55:00 73 mm[Hg] [facility] BP Systolic 2021-07-19 16:55:00 148 mm[Hg] [facility] Heart Rate 2021-07-19 16:55:00 101 /min [facility] Respiratory rate 2021-07-19 16:55:00 18 /min [facility] Body Temperature 2021-07-19 16:55:00 98.4 [degF] [facility] BP Diastolic 2021-06-30 12:20:00 98 mm[Hg] [facility] BP Systolic 2021-06-30 12:20:00 111 mm[Hg] [facility] Heart Rate 2021-06-30 12:20:00 91 /min [facility] Respiratory rate 2021-06-30 12:20:00 12 /min [facility] Body Temperature 2021-06-30 12:20:00 97.7 [degF] [facility] BP Diastolic 2021-06-30 11:42:00 98 mm[Hg] [facility] BP Systolic 2021-06-30 11:42:00 111 mm[Hg] [facility] Heart Rate 2021-06-30 11:42:00 91 /min [facility] Respiratory rate 2021-06-30 11:42:00 12 /min [facility] Body Temperature 2021-06-30 11:42:00 97.7 [degF] [facility] BP Diastolic 2021-04-12 14:48:00 84 mm[Hg] [facility] BP Systolic 2021-04-12 14:48:00 116 mm[Hg] [facility] Heart Rate 2021-04-12 14:48:00 77 /min [facility] Respiratory rate 2021-04-12 14:48:00 20 /min [facility] Body Temperature 2021-04-12 14:48:00 98.3 [degF] [facility] BP Diastolic 2021-04-12 13:29:00 84 mm[Hg] [facility] BP Systolic 2021-04-12 13:29:00 116 mm[Hg] [facility] Heart Rate 2021-04-12 13:29:00 77 /min [facility] Respiratory rate 2021-04-12 13:29:00 20 /min [facility] Body Temperature 2021-04-12 13:29:00 98.3 [degF] [facility] BP Diastolic 2021-03-17 18:53:00 69 mm[Hg] [facility] BP Systolic 2021-03-17 18:53:00 98 mm[Hg] [facility] Heart Rate 2021-03-17 18:53:00 92 /min [facility] Respiratory rate 2021-03-17 18:53:00 16 /min [facility] Body Temperature 2021-03-17 18:53:00 98.6 [degF] [facility] BP Diastolic 2021-03-17 17:31:00 69 mm[Hg] [facility] BP Systolic 2021-03-17 17:31:00 98 mm[Hg] [facility] Heart Rate 2021-03-17 17:31:00 92 /min [facility] Respiratory rate 2021-03-17 17:31:00 16 /min [facility] Body Temperature 2021-03-17 17:31:00 98.6 [degF] [facility] BP Diastolic 2020-10-24 11:37:00 76 mm[Hg] [facility] BP Systolic 2020-10-24 11:37:00 120 mm[Hg] [facility] Heart Rate 2020-10-24 11:37:00 71 /min [facility] Respiratory rate 2020-10-24 11:37:00 18 /min [facility] Body Temperature 2020-10-24 11:37:00 97.5 [degF] [facility] BP Diastolic 2020-10-24 09:49:00 76 mm[Hg] [facility] BP Systolic 2020-10-24 09:49:00 120 mm[Hg] [facility] Heart Rate 2020-10-24 09:49:00 71 /min [facility] Respiratory rate 2020-10-24 09:49:00 18 /min [facility] Body Temperature 2020-10-24 09:49:00 97.5 [degF] [facility] BP Diastolic 2020-05-23 16:43:00 85 mm[Hg] [facility] BP Systolic 2020-05-23 16:43:00 110 mm[Hg] [facility] Heart Rate 2020-05-23 16:43:00 83 /min [facility] Respiratory rate 2020-05-23 16:43:00 16 /min [facility] BP Diastolic 2020-05-23 12:59:00 99 mm[Hg] [facility] BP Systolic 2020-05-23 12:59:00 113 mm[Hg] [facility] Heart Rate 2020-05-23 12:59:00 92 /min [facility] Respiratory rate 2020-05-23 12:59:00 20 /min [facility] Body Temperature 2020-05-23 12:59:00 97.8 [degF] [facility] Body Temperature 2019-05-08 16:00:00 98.2 [degF] [facility] Heart Rate 2019-05-08 16:00:00 104 /min [facility] Respiratory rate 2019-05-08 16:00:00 16 /min [facility] BP Systolic 2019-05-08 16:00:00 143 mm[Hg] [facility] BP Diastolic 2019-05-08 16:00:00 82 mm[Hg] [facility] Heart Rate 2019-05-08 15:15:00 104 /min [facility] Respiratory rate 2019-05-08 15:15:00 16 /min [facility] BP Systolic 2019-05-08 15:15:00 143 mm[Hg] [facility] BP Diastolic 2019-05-08 15:15:00 82 mm[Hg] [facility] Weight 2019-05-08 15:15:00 225 [lb_av] [facility] BMI (Body Mass Index) 2019-05-08 15:15:00 36.3 kg/m2 [employer] Body Temperature 2019-03-17 14:05:00 97.9 [degF] [facility] Heart Rate 2019-03-17 14:05:00 78 /min [facility] Respiratory rate 2019-03-17 14:05:00 20 /min [facility] BP Systolic 2019-03-17 14:05:00 116 mm[Hg] [facility] BP Diastolic 2019-03-17 14:05:00 81 mm[Hg] [facility] Weight 2019-03-17 14:05:00 225 [lb_av] [facility] BMI (Body Mass Index) 2019-03-17 14:05:00 36.3 kg/m2 [facility] [employer] Body Temperature 2019-03-13 13:40:00 97.7 [degF] [facility] Heart Rate 2019-03-13 13:40:00 69 /min [facility] Respiratory rate 2019-03-13 13:40:00 18 /min [facility] BP Systolic 2019-03-13 13:40:00 114 mm[Hg] [facility] BP Diastolic 2019-03-13 13:40:00 77 mm[Hg] [facility] Weight 2019-03-13 13:40:00 225 [lb_av] [facility] BMI (Body Mass Index) 2019-03-13 13:40:00 36.3 kg/m2 [facility] Procedures Procedure Date / Time Performed Performing Clinician Source ECG (electrocardiogram) 2021-08-03 00:00:00 [facility] X-ray of chest, single view 2021-08-03 00:00:00 [facility] ECG (electrocardiogram) 2021-07-19 00:00:00 [facility] X-ray of chest, single view 2021-07-19 00:00:00 [facility] X-RAY EXAM CHEST 1 VIEW 2021-07-19 00:00:00 [facility] URINALYSIS AUTO W/O SCOPE 2021-07-19 00:00:00 [facility] [facility] 2021-07-19 00:00:00 [facility] URINE CULTURE/COLONY COUNT 2021-07-19 00:00:00 [facility] ELECTROCARDIOGRAM TRACING 2021-07-19 00:00:00 [facility] EMERGENCY DEPT VISIT 2021-07-19 00:00:00 [facility] EMERGENCY DEPT VISIT 2021-06-30 00:00:00 [facility] X-ray of chest, two views 2021-03-17 00:00:00 [facility] X-RAY EXAM CHEST 2 VIEWS 2021-03-17 00:00:00 [facility] SARS-COV-2 COVID-19 AMP PRB 2021-03-17 00:00:00 [facility] EMERGENCY DEPT VISIT 2021-03-17 00:00:00 [facility] Hopd covid-19 spec collect 2021-03-17 00:00:00 [facility] X-ray of chest, two views 2020-10-24 00:00:00 [facility] X-ray of chest, two views 2020-05-23 00:00:00 [facility] Radiologic examination, ribs, unilateral; 2 views 2019-03-13 00:00:00 [facility] Radiologic examination, abdomen; 2 views 2019-03-13 00:00:00 [facility] URINALYSIS AUTO W/O SCOPE 2019-03-13 00:00:00 [facility] EMERGENCY DEPT VISIT 2019-03-13 00:00:00 [facility] Encounters Start Date/Time End Date/Time Encounter Type Admission Type Attending [facility] Care Department Encounter ID Source 2022-09-12 11:13:53 Inpatient SPTP SPT [id number] [facility] 2019-09-01 10:30:00 Inpatient CARLOS HALL GLORY WALLERUS [id number] [facility] 2017-10-01 17:03:00 Inpatient C [facility] [id number] [facility] 2016-10-27 18:45:00 Inpatient C [facility] [id number] [facility] 2023-08-15 22:15:00 2023-08-16 02:20:00 Emergency ER IRENE DIANA [facility] [id number] [facility] 2023-07-26 18:20:00 2023-07-26 20:56:00 Emergency ER BARBIE BLACKMON [facility] [id number] [facility] 2023-03-21 13:15:00 2023-03-21 14:54:00 Emergency ER BIB REYES [facility] [id number] [facility] 2022-05-24 13:35:00 2022-05-24 14:06:00 Emergency ER THI, AMORLAINEY HOLDER [id number] [facility] 2022-03-27 00:00:00 2022-03-27 00:00:00 Outpatient Elba Cullen [facility] [id number] [facility] 2022-03-04 18:36:00 2022-03-04 19:55:00 Emergency ER DEAN WILLAMS [id number] [facility] 2022-01-04 13:45:00 2022-01-04 14:34:00 Emergency ER THIAMOR [id number] [facility] 2022-01-04 13:45:00 2022-01-04 14:34:00 Emergency ER THIAMOR [id number] [facility] 2021-11-09 20:27:00 2021-11-09 21:45:00 Emergency ER JOSEPHINE MCDANIEL [id number] [facility] 2021-11-09 20:27:00 2021-11-09 21:45:00 Emergency ER JOSEPHINE MCDANIEL SRIDHAR GLORY [id number] [facility] 2021-08-03 10:05:00 2021-08-03 11:37:00 Emergency ER VINNIE PRETTY [facility] WALLERUS [id number] [facility] 2021-08-03 10:05:00 2021-08-03 11:37:00 Registered Emergency Room ER VINNIE PRETTY SRIDHARUS [id number] [facility] 2021-07-19 16:18:00 2021-07-19 19:28:00 Emergency ER BRAULIO WISDOM GLORY HOLDER [id number] [facility] 2021-07-19 16:18:00 2021-07-19 19:28:00 Departed Emergency Room ER BRAULIO WISDOM [facility] W[facility]ER[facility] [id number] [facility] 2021-06-30 11:12:00 2021-06-30 12:22:00 Emergency ER ARTISBRAULIO PAREDES GLORY WALLERUS [id number] [facility] 2021-06-30 11:12:00 2021-06-30 12:22:00 Departed Emergency Room ER BRAULIO WISDOM SRIDHAR SRIDHARUS [id number] [facility] 2021-04-26 18:25:00 2021-04-26 19:39:00 Emergency ER VINNIE PRETTY GLORY HOLDER [id number] [facility] 2021-04-26 18:25:00 2021-04-26 19:39:00 Emergency ER VINNIE PRETTY GLORY WALLERUS [id number] [facility] 2021-04-12 13:21:00 2021-04-12 14:48:00 Emergency ER ARMNI RODAS GLORY HOLDER [id number] [facility] 2021-04-12 13:21:00 2021-04-12 14:48:00 Departed Emergency Room ER ARMIN RODAS GLORY WALLERUS [id number] [facility] 2021-03-17 17:13:00 2021-03-17 18:55:00 Emergency ER ARMIN RODAS SRIDHAR GLORY [id number] [facility] 2021-03-17 17:13:00 2021-03-17 18:55:00 Departed Emergency Room ER ARMIN RODAS SRIDHAR GLORY [id number] [facility] 2020-10-24 09:37:00 2020-10-24 11:38:00 Emergency ER EMMA ANDUJAR GLORY HOLDER [id number] [facility] 2020-10-24 09:37:00 2020-10-24 11:38:00 Departed Emergency Room ER EMMA ANDUJAR GLORY HOLDER [id number] [facility] 2020-05-23 12:51:00 2020-05-23 16:45:00 Emergency ER BENNY MIRELES GLORY HOLDER [id number] [facility] 2020-05-23 12:51:00 2020-05-23 16:45:00 Departed Emergency Room ER BENNY MIRELES GLORY HOLDER [id number] [facility] 2019-09-01 10:30:00 2019-09-01 11:15:00 Emergency ER CARLOS HALL GLORY HOLDER [id number] [facility] 2019-08-20 10:16:00 2019-08-20 12:02:00 Inpatient ER NEHEMIAHJAKUB GLORY HOLDER [id number] [facility] 2019-08-20 10:16:00 2019-08-20 12:02:00 Emergency ER JAKUB CERNA GLORY HOLDER [id number] [facility] 2019-05-08 14:17:00 2019-05-08 16:11:00 Emergency ER NEHEMIAHJAKUB GLORY HOLDER [id number] [facility] 2019-05-08 14:17:00 2019-05-08 16:11:00 Departed Emergency Room [facility] [id number] [facility] 2019-05-04 12:39:00 2019-05-04 15:48:00 Emergency 1 Dillon CardonaX [address]IN [id number] [facility] 2019-03-17 13:41:00 2019-03-17 14:38:00 Emergency ER BRINA MAX SRIDHARUS [id number] [facility] 2019-03-17 13:41:00 2019-03-17 14:38:00 Departed Emergency Room [facility] [id number] [facility] 2019-03-13 11:59:00 2019-03-13 16:35:00 Emergency ER DEEPAK REYNOSO GLORY [id number] [facility] 2019-03-13 11:59:00 2019-03-13 16:35:00 Departed Emergency Room ER DEEPAK REYNOSO [id number] [facility] 2018-12-21 20:55:00 2018-12-21 22:00:00 Emergency ER MISSAEL URIBE SRIDHAR GLORY [id number] [facility] 2018-08-11 18:38:00 2018-08-11 21:31:00 Emergency ER JORGE MCDANIEL SRIDHARUS [id number] [facility] 2018-04-21 13:47:00 2018-04-21 15:19:00 Emergency ER [facility] ER, LAKIA HOLDER GLORY [id number] [facility] 2017-10-23 09:00:00 2018-01-20 17:10:00 Outpatient 3 Brent Pierreson [facility] [id number] [facility] 2017-10-08 14:34:00 2017-10-08 14:34:00 Inpatient C [facility] [id number] [facility] 2017-09-29 23:40:00 2017-09-29 21:35:00 Inpatient E [facility] [id number] [facility] 2017-09-18 23:50:00 2017-09-19 00:45:00 Emergency ER CARLEEN WIGGINS GLORY WALLERUS [id number] [facility] 2017-09-18 23:50:00 2017-09-19 00:45:00 [id number] [facility] 2017-08-25 13:47:00 2017-08-25 14:20:00 Emergency ER SANTOS GAR GLORY [id number] [facility] 2017-07-29 11:20:00 2017-07-29 16:14:00 Emergency ER FRANCI SOW GLORY HOLDER [id number] [facility] 2017-04-03 17:16:00 2017-04-03 18:00:00 Emergency ER SANTOS GAR GLORY HOLDER [id number] [facility] 2016-10-26 19:28:00 2016-10-26 19:28:00 Outpatient E [facility] [id number] [facility] 2016-10-10 00:56:00 2016-10-10 04:54:00 Emergency ER MARIPOSA KRISHNA GLORY HOLDER [id number] [facility] 2016-10-08 20:38:00 2016-10-09 01:47:00 Emergency ER VERA OLIVEROS SRIDHAR GLORY [id number] [facility] 2016-10-08 20:38:00 2016-10-09 01:47:00 Emergency ER VERA OLIVEROS SRIDHAR GLORY [id number] [facility] 2016-09-09 11:49:00 2016-09-09 11:49:00 Emergency E [facility] [id number] [facility] 2016-09-08 17:27:00 2016-09-08 17:27:00 Emergency E [facility] [id number] [facility] 2016-09-03 21:18:00 2016-09-03 21:18:00 Emergency E [facility] [id number] [facility] 2016-08-04 13:31:00 2016-08-04 13:31:00 Emergency E [facility] [id number] [facility] 2016-02-22 22:36:00 2016-02-28 22:47:00 [id number] [facility] 2016-02-22 22:36:00 2016-02-28 22:47:00 Inpatient [facility] [id number] [facility] 2016-01-06 10:05:00 2016-01-15 00:01:00 Outpatient AMPARO GABRIEL GLORY [id number] [facility] 2015-11-24 08:05:00 2015-12-15 00:01:00 Outpatient AMPARO GABRIEL GLORY [id number] [facility] 2015-09-12 11:05:00 2015-09-15 00:01:00 Outpatient AMPARO GABRIEL GLORY [id number] [facility] 2015-09-09 22:31:00 2015-09-10 01:50:00 Emergency ER CARRIERUBÉN GLORY HOLDER [id number] [facility] 2015-09-05 08:32:00 2015-09-05 15:12:00 Outpatient AMPARO GABRIEL GLORY [id number] [facility] 2015-08-11 09:35:00 2015-08-15 00:01:00 Outpatient AMPARO GABRIEL GLORY [id number] [facility] 2015-01-22 12:52:00 2015-01-22 18:01:00 Emergency ER JOSSEYANDY GLORY WALLER [id number] [facility] Results Test Description Test Time Test Comments Results Result Co [facility]ments Source [facility] [id number] 18:05:00* Test Item Value Reference Range Interpretation Comme nts Urine Color (test code = 33248-7) Lt Yellow Yel-Yuliana * [facility] etjheplsbvzgf6233-07-97 18:05:00* Test Item Value Reference Range Interpretation Comme nts Urine Appearance (test code = 94492-4) Clear Clear * [facility] by automated test [id number] 18:05:00* Test Item Value Reference Range Interpretation Comme nts Urine pH (test code = 53742-2) 7.0 5.0-8.0 [facility] of Urine by Automated test [id number] 18:05:00* Test Item Value Reference Range Interpretation Comme nts Urine Specific [place] (test code = 12940-7) 1.004 1.005-1.030 [facility] HealthUrine protein measurement by automated test strip (mass/volume) 2021-07-19 18:05:00* Test Item Value Reference Range Interpretation Comme nts Urine Protein (test code = 39495-5) Negative Negative * [facility]Urine glucose measurement by automated test strip (mass/volume) 2021-07-19 18:05:00* Test Item Value Reference Range Interpretation Comme nts Urine Glucose (UA) (test cod e = 89136-2) Negative Negative * [facility] HealthKetones [Mass/volume] in Urine by Automated test [id number] 18:05:00* Test Item Value Reference Range Interpretation Comme nts Urine Ketones (test code = 94244-8) Negative Negative * [facility] HealthUrine erythrocytes count by automated test strip (number/volume) 2021-07-19 18:05:00* Test Item Value Reference Range Interpretation Comme nts Urine Occult Blood (test cod e = 15068-8) Negative Negative * [facility] HealthUrine nitrite detection by automated test [id number] 18:05:00* Test Item Value Reference Range Interpretation Comme nts Urine Nitrite (test code = 50277-9) Negative Negative [facility] HealthUrine total bilirubin measurement by automated test strip (mass/volume)2021-07-19 18:05:00* Test Item Value Reference Range Interpretation Comme nts Urine Bilirubin (test code = 17106-0) Negative Negative [facility] HealthUrine urobilinogen measurement by automated test strip (mass/volume)2021-07-19 18:05:00* Test Item Value Reference Range Interpretation Comme nts Urine Urobilinogen (test cod e = 54625-7) Negative 0.0-1.0 [facility] HealthUrine leukocytes count by automated test strip (number/volume) 2021-07-19 18:05:00* Test Item Value Reference Range Interpretation Comme nts Urine Leukocyte Esterase (te st code = 00605-4) 75 Negative [facility] HealthMicroscopic examination of [id number] 18:05:00* Test Item Value Reference Range Interpretation Comme nts Microscopic Urinalysis (T) ( test code = 64787-1) ----- [facility] HealthUrine sediment erythrocyte count by microscopy (number/high power field)2021-07-19 18:05:00* Test Item Value Reference Range Interpretation Comme nts Urine RBC (test code = 47366-2) 0-2 0-2 [facility] HealthUrine sediment leukocyte count by microscopy (number/high power field)2021-07-19 18:05:00* Test Item Value Reference Range Interpretation Comme nts Urine WBC (test code = 5821-4) 0-5 0-5 [facility] HealthUrine sediment epithelial cell count by microscopy (number/high power field)2021-07-19 18:05:00* Test Item Value Reference Range Interpretation Comme nts Urine Epithelial Cells (test code = 5787-7) Frequent Few [facility] HealthUrine sediment crystal count by microscopy (number/high power field)2021-07-19 18:05:00* Test Item Value Reference Range Interpretation Comme nts Urine Crystals (test code = 34970-7) None Seen None * [facility] HealthUrine sediment bacteria count by microscopy (number/high power field)2021-07-19 18:05:00* Test Item Value Reference Range Interpretation Comme nts Urine Bacteria (test code = 5769-5) Frequent None [facility] HealthUrine sediment casts count by microscopy (number/low power field) 2021-07-19 18:05:00* Test Item Value Reference Range Interpretation Comme nts Urine Casts (test code = 9842-6) None Seen None * [facility] HealthYeast detection in urine sediment by light [id number] 18:05:00* Test Item Value Reference Range Interpretation Comme nts Urine Yeast (test code = 25675-6) None Seen None [facility] comment 18:05:00* Test Item Value Reference Range Interpretation Comme nts Urinalysis Comment (test code = 8262-8) * See_Comment [Automated messa ge] The system which generated this result transmitted reference range: *. The reference range was not used to interpret this result as normal/abnormal. [facility] comment 18:05:00* Test Item Value Reference Range Interpretation Comme nts Urine Culture Indicated (mary grace t code = 8264-4) [facility] follow [facility] [id number] 18:05:00* Test Item Value Reference Range Interpretation Comme nts Urine Test (test c ode = 2106-3) Negative Negative [facility] specimen collection [id number] 18:05:00* Test Item Value Reference Range Interpretation Comme nts Urine Source (test code = 18612-2) URINE [facility] HealthColor of Urine by [id number] 18:05:00* Test Item Value Reference Range Interpretation Comme nts Urine Color (test code = 99472-8) Lt Yellow Yel-Yuliana * [facility] HealthUrine clarity brpxlaawrynps4211-31-76 18:05:00* Test Item Value Reference Range Interpretation Comme nts Urine Appearance (test code = 25854-9) Clear Clear * [facility] HealthUrine pH measurement by automated test [id number] 18:05:00* Test Item Value Reference Range Interpretation Comme nts Urine pH (test code = 07047-5) 7.0 5.0-8.0 [facility] HealthSpecific gravity of Urine by Automated test [id number] 18:05:00* Test Item Value Reference Range Interpretation Comme nts Urine Specific [place] (test code = 79970-8) 1.004 1.005-1.030 [facility] HealthUrine protein measurement by automated test strip (mass/volume) 2021-07-19 18:05:00* Test Item Value Reference Range Interpretation Comme nts Urine Protein (test code = 34782-9) Negative Negative * [facility] HealthUrine glucose measurement by automated test strip (mass/volume) 2021-07-19 18:05:00* Test Item Value Reference Range Interpretation Comme nts Urine Glucose (UA) (test cod e = 15024-8) Negative Negative * [facility] HealthKetones [Mass/volume] in Urine by Automated test [id number] 18:05:00* Test Item Value Reference Range Interpretation Comme nts Urine Ketones (test code = 88158-9) Negative Negative * [facility] HealthUrine erythrocytes count by automated test strip (number/volume) 2021-07-19 18:05:00* Test Item Value Reference Range Interpretation Comme nts Urine Occult Blood (test cod e = 61921-5) Negative Negative * [facility] HealthUrine nitrite detection by automated test [id number] 18:05:00* Test Item Value Reference Range Interpretation Comme nts Urine Nitrite (test code = 01192-4) Negative Negative [facility] HealthUrine total bilirubin measurement by automated test strip (mass/volume)2021-07-19 18:05:00* Test Item Value Reference Range Interpretation Comme nts Urine Bilirubin (test code = 61367-4) Negative Negative [facility] HealthUrine urobilinogen measurement by automated test strip (mass/volume)2021-07-19 18:05:00* Test Item Value Reference Range Interpretation Comme nts Urine Urobilinogen (test cod e = 70419-1) Negative 0.0-1.0 [facility] HealthUrine leukocytes count by automated test strip (number/volume) 2021-07-19 18:05:00* Test Item Value Reference Range Interpretation Comme nts Urine Leukocyte Esterase (te st code = 64184-9) 75 Negative [facility] HealthMicroscopic examination of [id number] 18:05:00* Test Item Value Reference Range Interpretation Comme nts Microscopic Urinalysis (T) ( test code = 27795-5) ----- [facility] HealthUrine sediment erythrocyte count by microscopy (number/high power field)2021-07-19 18:05:00* Test Item Value Reference Range Interpretation Comme nts Urine RBC (test code = 61301-7) 0-2 0-2 [facility] HealthUrine sediment leukocyte count by microscopy (number/high power field)2021-07-19 18:05:00* Test Item Value Reference Range Interpretation Comme nts Urine WBC (test code = 5821-4) 0-5 0-5 [facility] HealthUrine sediment epithelial cell count by microscopy (number/high power field)2021-07-19 18:05:00* Test Item Value Reference Range Interpretation Comme nts Urine Epithelial Cells (test code = 5787-7) Frequent Few [facility] HealthUrine sediment crystal count by microscopy (number/high power field)2021-07-19 18:05:00* Test Item Value Reference Range Interpretation Comme nts Urine Crystals (test code = 16707-3) None Seen None * [facility] HealthUrine sediment bacteria count by microscopy (number/high power field)2021-07-19 18:05:00* Test Item Value Reference Range Interpretation Comme nts Urine Bacteria (test code = 5769-5) Frequent None [facility] HealthUrine sediment casts count by microscopy (number/low power field) 2021-07-19 18:05:00* Test Item Value Reference Range Interpretation Comme nts Urine Casts (test code = 9842-6) None Seen None * [facility] HealthYeast detection in urine sediment by light [id number] 18:05:00* Test Item Value Reference Range Interpretation Comme nts Urine Yeast (test code = 77659-3) None Seen None [facility] comment 18:05:00* Test Item Value Reference Range Interpretation Comme nts Urinalysis Comment (test code = 8262-8) * See_Comment [Automated messa ge] The system which generated this result transmitted reference range: *. The reference range was not used to interpret this result as normal/abnormal. [facility] comment 18:05:00* Test Item Value Reference Range Interpretation Comme nts Urine Culture Indicated (mary grace t code = 8264-4) To follow [facility] HealthHCG ur lrxvpguag1254-28-93 18:05:00* Test Item Value Reference Range Interpretation Comme nts Urine Test (test c ode = 2106-3) Negative Negative [facility] HealthBacterial urine [id number] 18:05:00* Test Item Value Reference Range Interpretation Comme nts Urine Culture (test code = 630-4) No significant growth. [facility] HealthUrinalysis specimen collection [id number] 13:53:00* Test Item Value Reference Range Interpretation Comme nts Urine Source (test code = 70154-5) URINE SRIDHARUS HealthColor of Urine by Ssnx2372-36-53 13:53:00* Test Item Value Reference Range Interpretation Comme nts Urine Color (test code = 90532-0) Colorless Yel-Yuliana * [facility] HealthUrine clarity grtoptetnxvmq7966-56-08 13:53:00* Test Item Value Reference Range Interpretation Comme nts Urine Appearance (test code = 92330-0) Clear Clear * [facility] HealthUrine pH measurement by automated test [id number] 13:53:00* Test Item Value Reference Range Interpretation Comme nts Urine pH (test code = 76499-0) 6.5 5.0-8.0 [facility] HealthSpecific gravity of Urine by Automated test moqtl3944-44-93 13:53:00* Test Item Value Reference Range Interpretation Comme nts Urine Specific [place] (test code = 58484-7) 1.003 1.005-1.030 [facility] HealthUrine protein measurement by automated test strip (mass/volume) 2021-04-12 13:53:00* Test Item Value Reference Range Interpretation Comme nts Urine Protein (test code = 70720-1) Negative Negative * [facility] HealthUrine glucose measurement by automated test strip (mass/volume) 2021-04-12 13:53:00* Test Item Value Reference Range Interpretation Comme nts Urine Glucose (UA) (test cod e = 49866-8) Negative Negative * [facility] HealthKetones [Mass/volume] in Urine by Automated test [id number] 13:53:00* Test Item Value Reference Range Interpretation Comme nts Urine Ketones (test code = 32306-9) Negative Negative * [facility] HealthUrine erythrocytes count by automated test strip (number/volume) 2021-04-12 13:53:00* Test Item Value Reference Range Interpretation Comme nts Urine Occult Blood (test cod e = 06162-5) 1+ Negative * [facility] HealthUrine nitrite detection by automated test [id number] 13:53:00* Test Item Value Reference Range Interpretation Comme nts Urine Nitrite (test code = 32125-4) Negative Negative [facility] HealthUrine total bilirubin measurement by automated test strip (mass/volume)2021-04-12 13:53:00* Test Item Value Reference Range Interpretation Comme nts Urine Bilirubin (test code = 10068-3) Negative Negative [facility] HealthUrine urobilinogen measurement by automated test strip (mass/volume)2021-04-12 13:53:00* Test Item Value Reference Range Interpretation Comme nts Urine Urobilinogen (test cod e = 67368-2) Negative 0.0-1.0 [facility] HealthUrine leukocytes count by automated test strip (number/volume) 2021-04-12 13:53:00* Test Item Value Reference Range Interpretation Comme nts Urine Leukocyte Esterase (te st code = 93075-3) 75 Negative [facility] HealthMicroscopic examination of irabz5599-35-15 13:53:00* Test Item Value Reference Range Interpretation Comme nts Microscopic Urinalysis (T) ( test code = 62694-2) ----- [facility] HealthUrine sediment erythrocyte count by microscopy (number/high power field)2021-04-12 13:53:00* Test Item Value Reference Range Interpretation Comme nts Urine RBC (test code = 68640-8) 3-10 0-2 [facility] HealthUrine sediment leukocyte count by microscopy (number/high power field)2021-04-12 13:53:00* Test Item Value Reference Range Interpretation Comme nts Urine WBC (test code = 5821-4) 0-5 0-5 [facility] HealthUrine sediment epithelial cell count by microscopy (number/high power field)2021-04-12 13:53:00* Test Item Value Reference Range Interpretation Comme nts Urine Epithelial Cells (test code = 5787-7) Rare Few [facility] HealthUrine sediment crystal count by microscopy (number/high power field)2021-04-12 13:53:00* Test Item Value Reference Range Interpretation Comme nts Urine Crystals (test code = 79332-4) None Seen None * [facility] sediment bacteria count by microscopy (number/high power field)2021-04-12 13:53:00* Test Item Value Reference Range Interpretation Comme nts Urine Bacteria (test code = 5769-5) Rare None [facility] sediment casts count by microscopy (number/low power field) 2021-04-12 13:53:00* Test Item Value Reference Range Interpretation Comme nts Urine Casts (test code = 9842-6) None Seen None * [facility] HealthYeast detection in urine sediment by light yvqnkgoica3361-72-22 13:53:00* Test Item Value Reference Range Interpretation Comme nts Urine Yeast (test code = 71011-4) None Seen None [facility] comment 13:53:00* Test Item Value Reference Range Interpretation Comme nts Urinalysis Comment (test code = 8262-8) * See_Comment [Automated messa ge] The system which generated this result transmitted reference range: *. The reference range was not used to interpret this result as normal/abnormal. [facility] comment [id number] 13:53:00* Test Item Value Reference Range Interpretation Comme nts Urine Culture Indicated (mary grace t code = 8264-4) To follow [facility] source [id number] 17:35:00* Test Item Value Reference Range Interpretation Comme nts Coronavirus 2018 Source (mary grace t code = 34080-1) Nasal swab [facility] BbixiyRFWW-AsE-2 RdRp Resp Ql CHRISTIANNE+qyyof8330-42-32 17:35:00* Test Item Value Reference Range Interpretation Comme nts SARS CoV-2 RNA Rapid CHRISTIANNE (te st code = 56799-0) Negative Negative [facility] source [id number] 17:35:00* Test Item Value Reference Range Interpretation Comme nts Coronavirus 2019 Source (mary grace t code = 76608-4) Nasal swab [facility] KnxhivGLZL-LwE-3 RdRp Resp Ql [facility]STIANNE+vqroe8781-73-75 17:35:00* Test Item Value Reference Range Interpretation Comme nts SARS CoV-2 RNA Rapid CHRISTIANNE (te st code = 34227-6) Negative Negative [facility] HealthInfluenza virus A antigen detection in rvwn7752-30-26 15:36:00* Test Item Value Reference Range Interpretation Comme nts Influenza Type A Antigen (te st code = 11037-0) Negative Negative [facility] HealthInfluenza virus B antigen detection in jjci9229-05-05 15:36:00* Test Item Value Reference Range Interpretation Comme nts Influenza Type B Antigen (te st code = 17474-1) Negative Negative [facility] Streptococcus pyogenes antigen yyjlaerun2782-51-10 15:14:00* Test Item Value Reference Range Interpretation Comme nts Group A Streptococcus Screen (test code = 02744-9) Positive Negative [facility] Spine Cervical 2 or 3 Fryny6202-08-83 14:33:29Patient: NEIDA FINK Carmen Date/Time05/04/2019 14:12 CSTReason for ExamInjuryReportCERVICAL SPINE:CLINICAL INFORMATION: Neck pain.4 views of the cervical spine were submitted for interpretation, including a swimmer's view. The C6-7 disc space is narrowed and there are marginal spurs from the vertebral endplates. No acute bony abnormalities are demonstrated in the cervical verte brae. There is no evidence of abnormal soft tissue swelling.IMPRESSION:1. Degenerated disc at C6-7. Final Dictated by: MD Wills Joseph ADictated DT/TM: 05/04/2019 2:32 pmSigned by: MD Wills Joseph ASigned (Electronic Signature): 05/04/2019 2:33 pmUrine clarity ljqfndbdmwgwv2557-41-38 14:05:00* Test Item Value Reference Range Interpretation Comme nts Urine Appearance (test code = 89580-1) Clear Clear * [facility] pH measurement by automated test uzenh7495-22-16 14:05:00* Test Item Value Reference Range Interpretation Comme nts Urine pH (test code = 95193-9) 5.5 5.0-8.0 [facility] HealthSpecific gravity of Urine by Automated test jqsqp6150-64-14 14:05:00* Test Item Value Reference Range Interpretation Comme nts Urine Specific [place] (test code = 34013-3) 1.005 1.005-1.030 [facility]rine protein measurement by automated test strip (mass/volume) 2019-03-13 14:05:00* Test Item Value Reference Range Interpretation Comme nts Urine Protein (test code = 68879-0) Negative Negative * [facility] glucose measurement by automated test strip (mass/volume) 2019-03-13 14:05:00* Test Item Value Reference Range Interpretation Comme nts Urine Glucose (UA) (test cod e = 98707-0) Negative Negative * [facility]rine ketones measurement by automated test strip (mass/volume) 2019-03-13 14:05:00* Test Item Value Reference Range Interpretation Comme nts Urine Ketones (test code = 13517-6) Negative Negative * [facility] erythrocytes count by automated test strip (number/volume) 2019-03-13 14:05:00* Test Item Value Reference Range Interpretation Comme nts Urine Occult Blood (test cod e = 49294-2) Negative Negative * [facility]rine nitrite detection by automated test itsmx5069-24-46 14:05:00* Test Item Value Reference Range Interpretation Comme nts Urine Nitrite (test code = 65506-0) Negative Negative [facility] total bilirubin measurement by automated test strip (mass/volume)2019-03-13 14:05:00* Test Item Value Reference Range Interpretation Comme nts Urine Bilirubin (test code = 75125-3) Negative Negative [facility]rine urobilinogen measurement by automated test strip (mass/volume)2019-03-13 14:05:00* Test Item Value Reference Range Interpretation Comme nts Urine Urobilinogen (test cod e = 27368-0) Negative 0.0-1.0 [facility]rine leukocytes count by automated test strip (number/volume) 2019-03-13 14:05:00* Test Item Value Reference Range Interpretation Comme nts Urine Leukocyte Esterase (te st code = 53285-6) Negative Negative [facility] HealthMicroscopic examination of ipseh5010-96-45 14:05:00* Test Item Value Reference Range Interpretation Comme nts Microscopic Urinalysis (T) ( test code = 48852-0) Not Ind [facility] comment [id number] 14:05:00* Test Item Value Reference Range Interpretation Comme nts Urinalysis Comment (test code = 8262-8) * See_Comment [Automated messa ge] The system which generated this result transmitted reference range: *. The reference range was not used to interpret this result as normal/abnormal. [facility] HealthUrinalysis specimen collection eyqwos0731-74-50 14:05:00* Test Item Value Reference Range Interpretation Comme nts Urine Source (test code = 85839-7) URINE [facility] HealthColor of Urine by Eibn3846-78-49 14:05:00* Test Item Value Reference Range Interpretation Comme nts Urine Color (test code = 04762-4) Lt Yellow Yel-Yuliana * [facility] HealthUrine clarity bnecsehonxxti2650-02-28 14:05:00* Test Item Value Reference Range Interpretation Comme nts Urine Appearance (test code = 36390-9) Clear Clear * [facility] pH measurement by automated test gqaks6190-12-53 14:05:00* Test Item Value Reference Range Interpretation Comme nts Urine pH (test code = 14817-5) 5.5 5.0-8.0 [facility] HealthSpecific gravity of Urine by Automated test mkrfc7979-76-16 14:05:00* Test Item Value Reference Range Interpretation Comme nts Urine Specific [place] (test code = 95470-4) 1.005 1.005-1.030 [facility] HealthUrine protein measurement by automated test strip (mass/volume) 2019-03-13 14:05:00* Test Item Value Reference Range Interpretation Comme nts Urine Protein (test code = 88536-1) Negative Negative * [facility]rine glucose measurement by automated test strip (mass/volume) 2019-03-13 14:05:00* Test Item Value Reference Range Interpretation Comme nts Urine Glucose (UA) (test cod e = 74523-2) Negative Negative * [facility] HealthUrine ketones measurement by automated test strip (mass/volume) 2019-03-13 14:05:00* Test Item Value Reference Range Interpretation Comme nts Urine Ketones (test code = 72778-2) Negative Negative * [facility]rine erythrocytes count by automated test strip (number/volume) 2019-03-13 14:05:00* Test Item Value Reference Range Interpretation Comme nts Urine Occult Blood (test cod e = 12000-8) Negative Negative * [facility] HealthUrine nitrite detection by automated test opyzh8308-69-28 14:05:00* Test Item Value Reference Range Interpretation Comme nts Urine Nitrite (test code = 47773-4) Negative Negative [facility] HealthUrine total bilirubin measurement by automated test strip (mass/volume)2019-03-13 14:05:00* Test Item Value Reference Range Interpretation Comme nts Urine Bilirubin (test code = 98494-2) Negative Negative [facility] HealthUrine urobilinogen measurement by automated test strip (mass/volume)2019-03-13 14:05:00* Test Item Value Reference Range Interpretation Comme nts Urine Urobilinogen (test cod e = 49259-8) Negative 0.0-1.0 [facility]rine leukocytes count by automated test strip (number/volume) 2019-03-13 14:05:00* Test Item Value Reference Range Interpretation Comme nts Urine Leukocyte Esterase (te st code = 76424-7) Negative Negative [facility] HealthMicroscopic examination of jezib2947-36-05 14:05:00* Test Item Value Reference Range Interpretation Comme nts Microscopic Urinalysis (T) ( test code = 77954-5) Not Ind [facility] comment 14:05:00* Test Item Value Reference Range Interpretation Comme [facility] Urinalysis Comment (test code = 8262-8) * See_Comment [Automated messa ge] The system which generated this result transmitted reference range: *. The reference range was not used to interpret this result as normal/abnormal. [facility]inal[facility] specimen collection aqfgsw5167-23-89 14:05:00* Test Item Value Reference Range Interpretation Comme [facility] Urine Source (test code = 83542-0) URINE [facility] AdministrationColor of Urine by Yzff0372-55-89 14:05:00* Test Item Value Reference Range Interpretation Comme [facility] Urine Color (test code = 82802-9) Lt Yellow Yel-Yuliana * [facility]XR Ribs w/ PA Chest Clty3112-69-07 12:30:53Patient: NEIDA FINK Date/Time07/29/2018 12:15 CSTReason for ExamInjuryReportChest and leftRIBSREASON FOR STUDY: Left chest and rib pain post injuryFilms of the ribs show no definite signs of fracture, pneumothorax, or other abnormality. Lower rib detail somewhat obscured by the overlying abdominal structures. Lung shaw are clear with heart and mediastinum within normal limits. Pulmonary vascularity is normal.IMPRESSION: No active cardiopulmonary process identified. Heart and mediastinum are within normal limits with no abnormality involving the ribs. Final Dictated by: MD Baird Craig ADictated DT/TM: 07/29/2018 12:28 pmSigned by: MD Baird Craig ASigned (Electronic Signature): 07/29/2018 12:30 pmXR CHEST SGL 1V, [id number] 19:04:52XR CHEST SGL 1V, FRONTALDIAGNOSIS: Drug overdoseThe heart and mediastinum are normal. No consolidation or pleural fluidis seen.IMPRESSION: No active disease and no change since 04/08/2016. Notes Date/Time Note Provider Source 2017-10-10 17:48:48 [id number] na/mJv+EDPKFkTnD3YqG1P5qkRtgH 2nGGbWMKEN+3Uezgi0PoutdFY4995-01-35B45:48:48 [facility] Discharge SummaryPATIENT NAME: NEIDA FINK PHYSICIAN: Alvaro Yap MD ADMITTED: 10/01/2017 05:03:00 MR NUMBER: [id number] DISCHARGED: 10/07/2017 01:20:00 REASON FOR ADMISSION: Symptom of depression, suicide attempt by overdose.HOSPITAL COURSE: The patient is a 37-year-old female with a past psychiatric history of bipolar disorder, polysubstance abuse and noncompliance with treatment, who is admitted here voluntarily due to worsening symptoms of depression and suicide attempt by overdose. The patient was initially seen as a consultation done in the ICU and once she wasmedically stable, she was transferred up to our psychiatric unit in which we started the patient on the Cymbalta 30 mg p.o. daily, Depakote 500 mg p.o. b.i.d. for mood stabilization, trazodone 50 mg p.o. at bedtime p.r.n. as needed for insomnia. The patient had an adequate stay at our psychiatric unit. She stayed for about 6 days. Initially during the first few days of hospitalization, the patient continued to endorse depressed mood, intermittent suicidal ideation, dysphoria affect. She appeared somewhat anxious with psychosomatic complaint at time, including headache. She thought she could be having some developing cellulitis, but there was no objective evidence. No erythema or edema. The patient was cooperative with medication. No side effects. Eventually, the Cymbalta was titrated to 60 mgp.o. daily and the patient responded more effectively to the higher dosage. The patient did not demonstrate any suicidal tendency. No physical aggression. No psychotic or bizarre behavior. She was not a management problem. Otherwise, her hospital course was unremarkable.CONDITION AT DISCHARGE: The patient is stable. She is no longer feeling suicidal. The patient denies any suicidal or homicidal ideation. Denies anyauditory or visual hallucination. No persecutory delusions. No side effect to medication. She states she will go back home. She is still keep in touchand contact with her ex-. The patient still has more appropriate engaging affect. Otherwise, she is stable and may be back to her usual baseline. She also has plan to meet with her principal gifts officer and attend NA/AA meetings and get involved back with her orthodox and she was also interested in followup with the transitional program.DISCHARGE DIAGNOSES: 1. Bipolar disorder, most recent episode depressed without psychosis. 2. Polysubstance abuse including methamphetamine and cannabis. 3. Borderline personality disorder. 4. Noncompliance to treatment.Vital signs are stable.ACTIVITY: As tolerated.DISCHARGE INSTRUCTIONS: Advised the patient to remain adherent to all of hermedication, to keep her followup appointment with her PCP and outpatient psychiatrist at [facility] with Dr. Naqvi. Safety plan was discussed with thepatient. Advised the patient to call 911 or go to the nearest ER if the patient becomes acutely suicidal or homicidal. [facility] Discharge SummaryPATIENT NAME: NEIDA FINK PHYSICIAN: Alvaro Yap MD ADMITTED: 10/01/2017 05:03:00 MR NUMBER: [id number] DISCHARGED: 10/07/2017 01:20:00 REASON FOR ADMISSION: Symptom of depression, suicide attempt by overdose.HOSPITAL COURSE: The patient is a 37-year-old female with a past psychiatric history of bipolar disorder, polysubstance abuse and noncompliance with treatment, who is admitted here voluntarily due to worsening symptoms of depression and suicide attempt by overdose. The patient was initially seen as a consultation done in the ICU and once she wasmedically stable, she was transferred up to our psychiatric unit in which we started the patient on the Cymbalta 30 mg p.o. daily, Depakote 500 mg p.o. b.i.d. for mood stabilization, trazodone 50 mg p.o. at bedtime p.r.n. as needed for insomnia. The patient had an adequate stay at our psychiatric unit. She stayed for about 6 days. Initially during the first few days of hospitalization, the patient continued to endorse depressed mood, intermittent suicidal ideation, dysphoria affect. She appeared somewhat anxious with psychosomatic complaint at time, including headache. She thought she could be having some developing cellulitis, but there was no objective evidence. No erythema or edema. The patient was cooperative with medication. No side effects. Eventually, the Cymbalta was titrated to 60 mgp.o. daily and the patient responded more effectively to the higher dosage. The patient did not demonstrate any suicidal tendency. No physical aggression. No psychotic or bizarre behavior. She was not a management problem. Otherwise, her hospital course was unremarkable.CONDITION AT DISCHARGE: The patient is stable. She is no longer feeling suicidal. The patient denies any suicidal or homicidal ideation. Denies anyauditory or visual hallucination. No persecutory delusions. No side effect to medication. She states she will go back home. She is still keep in touchand contact with her ex-. The patient still has more appropriate engaging affect. Otherwise, she is stable and may be back to her usual baseline. She also has plan to meet with her principal gifts officer and attend NA/AA meetings and get involved back with her orthodox and she was also interested in followup with the transitional program.DISCHARGE DIAGNOSES: 1. Bipolar disorder, most recent episode depressed without psychosis. 2. Polysubstance abuse including methamphetamine and cannabis. 3. Borderline personality disorder. 4. Noncompliance to treatment.Vital signs are stable.ACTIVITY: As tolerated.DISCHARGE INSTRUCTIONS: Advised the patient to remain adherent to all of hermedication, to keep her followup appointment with her PCP and outpatient psychiatrist at [facility] with Dr. aNqvi. Safety plan was discussed with thepatient. Advised the patient to call 911 or go to the nearest ER if the patient becomes acutely suicidal or homicidal.Patient Name: NEIDA FINK LIONEL

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
--- NOTE | 2023-10-20 21:51 | RAD REPORT ---
EXAM DESCRIPTION: CT - Facial Bones W/ Mpr - 10/20/2023 9:19 pm CLINICAL HISTORY: Facial injury with pain COMPARISON: None TECHNIQUE: Computed axial tomography of the face was obtained. Coronal and sagittal reconstruction w as performed. All CT scans are performed using dose optimization technique as appropriate and may include automated exposure control or mA/KV adjustment according to patient size. FINDINGS: A fracture is not seen. A TMJ dislocation is not noted. The globes are intact. Fluid within the sinuses is not seen. Dental caries IMPRESSION: Negative for a facial fracture.
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
--- NOTE | 2023-10-20 22:29 | RAD REPORT ---
EXAM DESCRIPTION: RAD - Foot Left 3 View - 10/20/2023 10:08 pm CLINICAL HISTORY: Left Foot pain FINDINGS: No fracture or dislocation is seen.
[2023-10-20] MEDS ORDERED: NICOTINE 21 MG/PAT TD ONE (22:54)
[2023-10-20] MEDS ORDERED: LORAZEPAM 1 MG TABLET ONE (22:54)
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
[2023-10-21 00:33] VITALS: BP 137/11; TEMP 98.4; O2SAT 100
== END 2023-10-20 23:49 | disposition short-term general hospital (02) ==
LOC: ER 19:50
DX: S13.140A Subluxation of C3/C4 cervical vertebrae, initial encounter (principal); S13.150A Subluxation of C4/C5 cervical vertebrae, initial encounter; S12.601A Unspecified nondisplaced fracture of seventh cervical vertebra, initial encounter for closed fracture; M79.672 Pain in left foot; Z04.71 Encounter for examination and observation following alleged adult physical abuse; Z88.1 Allergy status to other antibiotic agents; Z88.2 Allergy status to sulfonamides; Z88.3 Allergy status to other anti-infective agents
CPT/HCPCS: 70450; 70486; 72125; 72192; 76377; 99284